=== PATIENT | male | born 2000 | race African-American/Black ===

== ENCOUNTER 2019-04-23 12:52 | Emergency (ER) | payer BC ==
[2019-04-23 16:35] LABS: Urine Appearance Clear; Urine Bacteria 1+ (Absent); Urine Bilirubin Negative (Negative); Urine Blood 2+ (Negative); Urine Color Colorless; Urine Glucose Negative (Negative); Urine Ketones Negative (Negative); Urine Nitrite Negative (Negative); Urine Protein Negative (Negative); Urine Red Blood Cell Trace(0-2/hpf) (Absent); Urine Specific Gravity 1.002 (1.010-1.030); Urine Urobilinogen Negative (Negative); Urine White Blood Cell 3+(>20/hpf) (Absent)
[2019-04-23] MEDS ORDERED: Lidocaine 1% MPF ** 5 ML VIAL IM ONE (16:54)
[2019-04-23] MEDS ORDERED: Azithromycin TAB* 250 MG PO ONE (16:54)
[2019-04-23] MEDS ORDERED: cefTRIAXone VIAL(*) 250 MG VIAL IM ONE (16:54)
--- NOTE | 2019-04-23 16:59 | ED ---
Complaint/Male - History of Current Complaint Chief Complaint: EDUrogenitalProblems Time Seen by Provider: 04/23/19 14:58 Hx Obtained From: Patient - Allergies/Home Medications Allergies/Adverse Reactions: Allergies Allergy/AdvReac Type Severity Reaction Status Date / Time No Known Allergies Allergy Verified 04/23/19 12:57 Home Medications: Home Medications Fluticasone NASAL SPRAY 50MCG* [Flonase NASAL SPRAY 50MCG*] 2 spray BOTH NARES DAILY 04/23/19 [History Confirmed 04/23/19] Multivitamin [Multivitamins] 1 cap PO DAILY 04/23/19 [History Confirmed 04/23/19 ] PMH/Surg Hx/FS Hx/Imm Hx Infectious Disease History: No Infectious Disease History: Denies: Traveled Outside the [place] in Last 30 Days - Social History Alcohol Use: Rare Substance Use Type: Reports: None Smoking Status (MU): Never Smoked Tobacco Physical Exam Vital Signs On Initial Exam: Initial Vitals Temp Pulse Resp BP Pulse Ox 99.6 F 96 16 120/73 96 04/23/19 12:55 04/23/19 12:55 04/23/19 12:55 04/23/19 12:55 04/23/19 12:55 Diagnostics - Vital Signs Vital Signs Temp Pulse Resp BP Pulse Ox 04/23/19 14:48 99.6 F 81 20 115/62 99 04/23/19 12:55 99.6 F 96 16 120/73 96 - Laboratory Lab Results: Lab Results 04/23/19 Range/Units 16:10 Urine Color Colorless Urine Appearance Clear Urine pH 8.0 (5-9) Ur Specific [place] 1.002 L (1.010-1.030) Urine Protein Negative (Negative) Urine Ketones Negative (Negative) Urine Blood 2+ A (Negative) Urine Nitrate Negative (Negative) Urine Bilirubin Negative (Negative) Urine Urobilinogen Negative (Negative) Ur Leukocyte Esterase 3+ A (Negative) Urine WBC (Auto) 3+(>20/hpf) A (Absent) Urine RBC (Auto) Trace(0-2/hpf) (Absent) Urine Bacteria 1+ A (Absent) Urine Glucose Negative (Negative) Lab Statement: Any lab studies that have been ordered have been reviewed, and results considered in the medical decision making process.
[2019-04-23 17:30] VITALS: BP 129/70
--- NOTE | 2019-04-24 07:48 | ED ---
GI/ HPI - HPI Summary HPI Summary: Patient is a 18-year-old male who presents emergency department for dysuria, hematuria and penile discharge started today. Patient denies fever, chills, abdominal pain, flank pain, vomiting. Patient notes new sexual partner without using protection. No past medical history. Symptoms are mild in severity. No current modifying factors. - History of Current Complaint Chief Complaint: EDUrogenitalProblems Time Seen by Provider: 04/23/19 14:58 Stated Complaint: BLOOD/DISCHARGE IN URINE/ABD PAIN PER PT Hx Obtained From: Patient Pain Intensity: 0 - Allergy/Home Medications Allergies/Adverse Reactions: Allergies Allergy/AdvReac Type Severity Reaction Status Date / Time No Known Allergies Allergy Verified 04/23/19 12:57 Home Medications: Home Medications Fluticasone NASAL SPRAY 50MCG* [Flonase NASAL SPRAY 50MCG*] 2 spray BOTH NARES DAILY 04/23/19 [History Confirmed 04/23/19] Multivitamin [Multivitamins] 1 cap PO DAILY 04/23/19 [History Confirmed 04/23/19 ] PMH/Surg Hx/FS Hx/Imm Hx Previously Healthy: Yes Infectious Disease History: No Infectious Disease History: Denies: Traveled Outside the [place] in Last 30 Days - Family History Known Family History: Positive: Non-Contributory - Social History Occupation: Student Lives: Dormitory/Roommates Alcohol Use: Rare Substance Use Type: Reports: None Smoking Status (MU): Never Smoked Tobacco Review of Systems Constitutional: Negative Negative: Fever, Chills ENT: Negative Cardiovascular: Negative Respiratory: Negative Gastrointestinal: Negative Negative: Abdominal Pain, Vomiting, Nausea Positive: dysuria, discharge, hematuria. Negative: flank pain Skin: Negative Negative: Rash All Other Systems Reviewed And Are Negative: Yes Physical Exam Triage Information Reviewed: Yes Vital Signs On Initial Exam: Initial Vitals Temp Pulse Resp BP Pulse Ox 99.6 F 96 16 120/73 96 04/23/19 12:55 04/23/19 12:55 04/23/19 12:55 04/23/19 12:55 04/23/19 12:55 Vital Signs Reviewed: Yes Appearance: Positive: Well-Appearing - Pt. sitting on bed in NAD. Skin: Positive: Warm, Dry Head/Face: Positive: Normal Head/Face Inspection Eyes: Positive: Normal, EOMI ENT: Positive: Pharynx normal, TMs normal. Negative: Tonsillar swelling, Tonsillar exudate Neck: Positive: Supple Respiratory/Lung Sounds: Positive: Clear to Auscultation, Breath Sounds Present Cardiovascular: Positive: Normal, RRR Abdomen Description: Positive: Nontender, Soft. Negative: CVA Tenderness (R), CVA Tenderness (L) Neurological: Positive: Normal, CN Intact II-III Psychiatric: Positive: Affect/Mood Appropriate Diagnostics - Vital Signs Vital Signs Temp Pulse Resp BP Pulse Ox 04/23/19 17:29 100.0 F 89 18 129/70 96 04/23/19 14:48 99.6 F 81 20 115/62 99 04/23/19 12:55 99.6 F 96 16 120/73 96 - Laboratory Lab Results: Lab Results 04/23/19 Range/Units 16:10 Urine Color Colorless Urine Appearance Clear Urine pH 8.0 (5-9) Ur Specific [place] 1.002 L (1.010-1.030) Urine Protein Negative (Negative) Urine Ketones Negative (Negative) Urine Blood 2+ A (Negative) Urine Nitrate Negative (Negative) Urine Bilirubin Negative (Negative) Urine Urobilinogen Negative (Negative) Ur Leukocyte Esterase 3+ A (Negative) Urine WBC (Auto) 3+(>20/hpf) A (Absent) Urine RBC (Auto) Trace(0-2/hpf) (Absent) Urine Bacteria 1+ A (Absent) Urine Glucose Negative (Negative) Lab Statement: Any lab studies that have been ordered have been reviewed, and results considered in the medical decision making process. GIGU Course/Dx - Course Course Of Treatment: The patient presenting with hematuria, dysuria and penile discharge. His abdominal or flank pain. Afebrile. Pending gonorrhea and chlamydia. Urinalysis shows RBCs and bacteria. We'll treat for likely STI with Rocephin and azithromycin. Advised patient to follow up with health clinic. Advised to avoid sexual interaction until symptoms resolve. Advised to always use protection. We'll return the ER if symptoms change or worsen. Patient understands and agrees with plan. - Diagnoses Differential Diagnoses - Male: Renal Colic, STD, Ureteral Calculi, Urinary Tract Infection Provider Diagnoses: Dysuria Discharge ED - Sign-Out/Discharge Documenting (check all that apply): Patient Departure Patient Received Moderate/Deep Sedation with Procedure: No - Discharge Plan Condition: Good Disposition: HOME Patient Education Materials: Sexually Transmitted Diseases (ED) Referrals: [facility] [Primary Care Provider] - Additional Instructions: Follow up with [facility] in one week Avoid sexual contact until symptoms resolve Will call if cultures are positive Return to ER if symptoms change or worsen - Billing Disposition and Condition Condition: GOOD Disposition: Home - Attestation Statements Provider Attestation: I was available for consultation for this patient. I did not evaluate the patient or participate in any medical decision making or disposition decisions unless I am specifically named in the chart as having consulted on the patient. If I have consulted on the patient, please see my own ED note on the patient encounter. Lidia Hicks MD
[2019-04-24 13:16] LABS: Chlamydia trachomatis NAA Negative (Negative); Neisseria gonorrhoeae (GC) NAA Negative (Negative)
== END 2019-04-23 17:29 | disposition home or self-care (01) ==
LOC: ED 12:52
DX: R30.0 Dysuria (principal); R31.9 Hematuria, unspecified; R36.9 Urethral discharge, unspecified
CPT/HCPCS: 81003; 81015; 87086; 87491; 87591; 96372; 99283; A9270-GY; J0696